=== PATIENT | male | born 1935 | race Hispanic/Latino ===

== ENCOUNTER 2023-10-18 22:49 | Emergency (ER) | payer MEDICARE, MEDICAID ==
[2023-10-18 22:56] VITALS: BP 161/136
[2023-10-18 23:01] VITALS: BP 144/55
[2023-10-18] MEDS ORDERED: SODIUM CHLORIDE 0.9% 1,000 ML IV ONE (23:05)
[2023-10-18] MEDS ORDERED: MECLIZINE HCL 25 MG/TAB PO ONE (23:10)
[2023-10-18 23:15] VITALS: BP 158/60
[2023-10-18 23:21] LABS: BASO% 0.4 % (0-3); EOS% 1.5 % (0-8); HEMATOCRIT 29.8 % (39.0-50.0); HEMOGLOBIN 10.3 g/dl (14.0-18.0); IMMATURE GRANULOCYTES 0.1 % (0.0-5.0); LYMPH% 12.1 % (15-41); MEAN CELL VOLUME 96.4 fL CALC (80.0-100.0); MEAN CORPUSCULAR HGB 33.3 pG CALC (26.0-32.0); MEAN CORPUSCULAR HGB CONC 34.6 g/dL CAL (32.0-36.0); NEUT# 6.85 thou/uL (1.82-7.42); NEUT% 79.9 % (42-76); RED BLOOD COUNT 3.09 mill/uL (4.70-6.10); RED CELL DISTRI WIDTH 12.1 % (11.5-15.5)
[2023-10-18 23:31] VITALS: BP 164/61
[2023-10-18 23:36] LABS: ALBUMIN 4.9 g/dL (3.2-5.0); ALKALINE PHOSPHATASE 69 u/l (38-126); ANION GAP 13 (6-22 (CALC)); BILIRUBIN, TOTAL 0.6 mg/dL (0.2-1.3); BUN 31 mg/dL (8-23); BUN/CREATININE RATIO 17 (12-20 (CALC)); CARBON DIOXIDE 23 mmol/l (22-30); CHLORIDE 104 mmol/l (95-108); CREATININE 1.9 mg/dL (0.7-1.3); ESTIMATED GFR 34 ML/MIN (>=90 (CALC)); POTASSIUM 4.5 mmol/l (3.5-5.1); SGOT/AST 29 u/l (19-48); SODIUM 135 mmol/l (137-146); TOTAL PROTEIN 8.2 g/dL (6.3-8.2)
[2023-10-18] MEDS ORDERED: TOPROL XL25 M1 PO (23:38)
[2023-10-18] MEDS ORDERED: ISOSORBIDE DINI30 MG PO (23:39)
[2023-10-18] MEDS ORDERED: LISINOPRIL40 MG PO (23:39)
[2023-10-18] MEDS ORDERED: ATORVASTATIN CA40 MG PO (23:40)
[2023-10-18] MEDS ORDERED: AMLODIPINE BESY10 MG PO (23:40)
[2023-10-18] MEDS ORDERED: PLAVIX75 MG PO (23:40)
[2023-10-18] MEDS ORDERED: PEPCID40 MG PO (23:41)
[2023-10-18] MEDS ORDERED: BAYER CHEWABLE81 MG PO (23:42)
[2023-10-18] MEDS ORDERED: VITAMIN D-32000 UNI1 PO (23:43)
[2023-10-18] MEDS ORDERED: [UNRECOGNIZED DRUG - CODE] PO (23:43)
[2023-10-18] MEDS ORDERED: FERROUS SULFAT325 MG PO (23:44)
[2023-10-18] MEDS ORDERED: PROTONIX40 M2 PO (23:44)
[2023-10-18] MEDS ORDERED: CREON12000 UNT PO (23:45)
[2023-10-18 23:46] VITALS: BP 154/60
[2023-10-19 00:54] VITALS: BP 169/65
[2023-10-19 01:01] VITALS: BP 164/64
[2023-10-19 01:09] LABS: URINE BILIRUBIN - DIPSTICK Negative (NEGATIVE); URINE BLOOD DIPSTICK Negative (NEGATIVE); URINE GLUCOSE - DIPSTICK Negative (NEGATIVE); URINE KETONE Negative (NEGATIVE); URINE LEUK ESTERASE Negative (NEGATIVE); URINE NITRITE - DIPSTICK Negative (Negative); URINE PROTEIN - DIPSTICK 100 mg/dL (NEG-TRACE); URINE UROBILINOGEN - DIPSTICK 0.2 E.U./dL (0.2)
[2023-10-19 01:23] LABS: URINE COLOR Yellow
[2023-10-19 01:25] LABS: URINE BACTERIA RARE hpf; URINE EPITHELIAL CELLS FEW EPI/hpf (0-FEW); URINE HYALINE CAST RARE lpf (NONE-RARE); URINE RBC 0-2 RBC/hpf (0-5); URINE WBC 0-2 WBC/hpf (0-5)
[2023-10-19 01:31] VITALS: BP 147/64
[2023-10-19] MEDS ORDERED: MIRALAX17 GM PO (01:45)
[2023-10-19] MEDS ORDERED: Polyethylene Glycol 3350 17 GM/PKT PO ONE (01:50)
[2023-10-19] MEDS ORDERED: MAGNESIUM CITRATE 296 ML/BTL PO ONE (01:50)
[2023-10-19 02:01] VITALS: BP 155/69
[2023-10-19 02:19] VITALS: BP 155/69
== END 2023-10-19 02:19 | disposition home or self-care (01) ==
LOC: ED 22:49
PROVIDERS: Family Medicine
DX: R42 Dizziness and giddiness (principal); K59.00 Constipation, unspecified; I10 Essential (primary) hypertension; I25.10 Atherosclerotic heart disease of native coronary artery without angina pectoris; Z95.5 Presence of coronary angioplasty implant and graft